=== PATIENT | male | born 1975 | race Caucasian/White ===

== ENCOUNTER → 2021-05-12 | Outpatient (CLI) | payer OTHER ==
--- NOTE | 2021-05-12 14:45 | XR ---
EXAMINATION TYPE: XR chest 2V DATE OF EXAM: 05/12/2021 COMPARISON: None HISTORY: 45-year-old male chronic cough TECHNIQUE: Frontal and lateral views FINDINGS: The cardiomediastinal silhouette, aorta, and pulmonary vasculature are within normal limits. Lungs an d pleural spaces are clear. IMPRESSION: No acute cardiopulmonary process.
[2021-05-13 01:08] LABS: Immunoglobulin E 7.81 IU/mL (0.00-114.00)
[2021-05-13 14:26] LABS: Alpha 1 Antitrypsin 95.5 mg/dL (99.0-242.0)
== END | disposition home or self-care (01) ==
LOC: LABWHC1 12:00
PROVIDERS: ATTEND Family Medicine
DX: R05 Cough (principal)
CPT/HCPCS: 36415; 71046; 82103; 82164; 82785; 86001; 86606; 86609

== ENCOUNTER → 2021-06-21 | Outpatient (CLI) | payer OTHER | END | disposition home or self-care (01) | LOC: LABWHC1 10:07 | PROVIDERS: ATTEND Family Medicine | DX: J45.991 Cough variant asthma (principal) | CPT/HCPCS: 36415; 82103; 82104 ==

== ENCOUNTER 2024-03-29 16:56 | Inpatient (IN) | payer BC, OTHER ==
--- NOTE | 2024-03-29 17:43 | ED ---
Psych HPI - General Chief Complaint: Psychiatric Symptoms Stated Complaint: Psych Time Seen by Provider: 03/29/24 16:57 Source: patient Mode of arrival: EMS - History of Present Illness Initial Comments: This patient is a 48-year-old man with history of anxiety who is brought to have psychiatric evaluation. The patient had called a friend to see if she could come and talk with him and eat pizza. He states that he told her he had taken his " stress doses" of psychiatric medication and she then called 911 and reported that the patient had taken an overdose. The patient maintains that he has taken only the as needed medications he is prescribed. He states that he always does feel he would be better off , but he states he would never take any suicidal actions. MD Complaint: other -: hour(s) Associated Psychiatric Symptoms: other (Anxiety) History of same: Yes Quality: constant Improves With: none Worsens With: none Context: significant life stressor Associated Symptoms: denies other symptoms - Related Data Home Medications Medication Instructions Recorded Confirmed ALPRAZolam [Xanax] 0.25 mg PO BID PRN 03/29/24 03/29/24 Divalproex ER [Depakote ER] 250 mg PO DAILY 03/29/24 03/29/24 Ergocalciferol (Vitamin D2) 1,250 mcg PO Q14D 03/29/24 03/29/24 [Drisdol (50,000 Iu)] Eszopiclone [Lunesta] 2 mg PO HS PRN 03/29/24 03/29/24 Etanercept [Enbrel Mini] 50 mg SQ Q7D 03/29/24 03/29/24 Finasteride 1 mg PO DAILY 03/29/24 03/29/24 Montelukast [Singulair] 10 mg PO HS 03/29/24 03/29/24 Omeprazole [PriLOSEC] 20 mg PO BID 03/29/24 03/29/24 Vortioxetine Hydrobromide 20 mg PO DAILY 03/29/24 03/29/24 [Trintellix] Ziprasidone [Geodon] 20 mg PO HS 03/29/24 03/29/24 Previous Rx's Medication Instructions Recorded Atorvastatin [Lipitor] 20 mg PO DAILY tab 04/03/24 Cyanocobalamin [Vitamin B-12] 500 mcg PO DAILY tab 04/03/24 Melatonin 10 mg PO HS tab 04/03/24 Allergies Allergy/AdvReac Type Severity Reaction Status Date / Time escitalopram [From Lexapro] Allergy Anaphylaxis Verified 03/29/24 19:27 Review of Systems ROS Statement: Those systems with pertinent positive or pertinent negative responses have been documented in the HPI. ROS Other: All systems not noted in ROS Statement are negative. Constitutional: Denies: fever, chills Respiratory: Denies: cough, dyspnea Cardiovascular: Denies: chest pain, palpitations Gastrointestinal: Denies: abdominal pain, nausea, vomiting Genitourinary: Denies: dysuria Skin: Denies: rash Neurological: Denies: headache, weakness Psychiatric: Reports: anxiety, depression, suicidal thoughts. Denies: homicidal thoughts Past Medical History History of Any Multi-Drug Resistant Organisms: None Reported Past Psychological History: Anxiety, Bipolar, Depression Smoking Status: Never smoker Past Alcohol Use History: None Reported Past Drug Use History: None Reported General Exam Limitations: no limitations General appearance: alert, in no apparent distress Head exam: Present: atraumatic, normocephalic Eye exam: Present: normal appearance. Absent: scleral icterus, conjunctival injection ENT exam: Present: normal oropharynx Neck exam: Present: normal inspection Respiratory exam: Present: normal lung sounds bilaterally. Absent: respiratory distress, wheezes, rales, rhonchi, stridor Cardiovascular Exam: Present: regular rate, normal rhythm, normal heart sounds. Absent: systolic murmur, diastolic murmur, rubs, gallop GI/Abdominal exam: Present: soft. Absent: distended, tenderness, guarding, rebound, rigid Extremities exam: Present: normal inspection, normal capillary refill. Absent: pedal edema, calf tenderness Back exam: Present: normal inspection. Absent: CVA tenderness (R), CVA tenderness (L) Neurological exam: Present: alert Psychiatric exam: Present: anxious, suicidal ideation. Absent: agitated, flat affect, manic, homicidal ideation Skin exam: Present: warm, dry, intact, normal color. Absent: rash Course Vital Signs 03/29/24 03/29/24 17:07 21:53 Temperature 98.6 F Pulse Rate 86 86 Respiratory 20 18 Rate Blood Pressure 130/96 135/74 O2 Sat by Pulse 100 97 Oximetry Medical Decision Making - Medical Decision Making Was pt. sent in by a medical professional or institution ([facility], ACCOUNTING ADVISORY SERVICES MANAGER, urgent care, hospital, or correction...) When possible be specific @ -[No] Did you speak to anyone other than the patient for history (EMS, parent, family, police, friend...)? What history was obtained from this source @ -[No] Did you review nursing and triage notes (agree or disagree)? Why? @ -[I reviewed and agree with nursing and triage notes] Were old charts reviewed (outside hosp., previous admission, EMS record, old EKG, old radiological studies, urgent care reports/EKG's, correction records)? Report findings @ -[No old charts were reviewed] Differential Diagnosis (chest pain, altered mental status, abdominal pain women, abdominal pain men, vaginal bleeding, weakness, fever, dyspnea, syncope, headache, dizziness, GI bleed, back pain, seizure, CVA, palpatations, mental health, musculoskeletal)? @ -[Differential Mental Health Depression, anxiety, bipolar, psychosis, schizophrenia, borderline personality, situational depression, adjustment disorder, behavioral disorder, brain tumor, malingering, substance abuse, encephalopathy, medication reaction, dementia, hypothyroidism, degenerative neurologic disorder, lupus.... This is not meant to be all-inclusive list EKG interpreted by me (3pts min.). @ -[As above] X-rays interpreted by me (1pt min.). @ -[None done] CT interpreted by me (1pt min.). @ -[None done] U/S interpreted by me (1pt. min.). @ -[None done] What testing was considered but not performed or refused? (CT, X-rays, U/S, labs)? Why? @ -[None] What meds were considered but not given or refused? Why? @ -[None] Did you discuss the management of the patient with other professionals (professionals i.e. [facility], ACCOUNTING ADVISORY SERVICES MANAGER, lab, RT, psych nurse, socially responsible investment adviser, c d stripper, teacher, sea air land officer, caseworker)? Give summary @ -Case discussed with EPS personnel and after they discussed with psychiatrist, the patient will be admitted for further mental health care. Was smoking cessation discussed for >3mins.? @ -[No] Was critical care preformed (if so, how long)? @ -[No] Were there social determinants of health that impacted care today? How? (Homelessness, low income, unemployed, alcoholism, drug addiction, transportation, low edu. Level, literacy, decrease access to med. care, prison, rehab)? @ -[No] Was there de-escalation of care discussed even if they declined (Discuss DNR or withdrawal of care, Hospice)? DNR status @ -[No] What co-morbidities impacted this encounter? (DM, HTN, Smoking, COPD, CAD, Cancer, CVA, ARF, Chemo, Hep., AIDS, mental health diagnosis, sleep apnea, morbid obesity)? @ -[Pre-existing mood disorder Was patient admitted / discharged? Hospital course, mention meds given and route, prescriptions, significant lab abnormalities, going to OR and other pertinent info. @ -[As above Undiagnosed new problem with uncertain prognosis? @ -[No] Drug Therapy requiring intensive monitoring for toxicity (Heparin, Nitro, Insulin, Cardizem)? @ -[No] Were any procedures done? @ -[No] Diagnosis/symptom? @ -[Mood disorder with suicidal ideation Acute, or Chronic, or Acute on Chronic? @ -[Acute on chronic Uncomplicated (without systemic symptoms) or Complicated (systemic symptoms)? @ -[Uncomplicated Side effects of treatment? @ -[No] Exacerbation, Progression, or Severe Exacerbation? @ -[No] Poses a threat to life or bodily function? How? (Chest pain, [place], [place], pneumonia, PE, COPD, DKA, ARF, appy, cholecystitis, CVA, Diverticulitis, Homicidal, Suicidal, threat to staff... and all critical care pts) @ -[Yes there is risk of progression to suicide attempt/ - Lab Data Result diagrams: 03/30/24 07:47 03/30/24 07:47 Lab Results 03/29/24 Range/Units 19:40 Influenza Type A (PCR) Not Detected (Not Detectd) Influenza Type B (PCR) Not Detected (Not Detectd) RSV (PCR) Not Detected (Not Detectd) SARS-CoV-2 (PCR) Not Detected (Not Detectd) Disposition Clinical Impression: Suicidal ideation Disposition: ADMITTED IP TO THIS HOSP Condition: Stable Is patient prescribed a controlled substance at d/c from ED?: No
[2024-03-29] MEDS: LORazepam 1 MG TAB PO STA (19:36)
[2024-03-29] MEDS ORDERED: MAGNESIUM HYDROXIDE 2,400 MG/30 ML CUP PO PRN (21:17)
[2024-03-29] MEDS ORDERED: IBUPROFEN 600 MG TAB PO PRN (21:17)
[2024-03-29] MEDS ORDERED: MAG HYDROX/AL HYDROX/SIMETH 355 ML BOTTLE PO PRN (21:17)
[2024-03-29 22:42] LABS: Appearance,Urine Clear (Clear); Bilirubin,Urine Negative (Negative); Blood,Urine Negative (Negative); Color,Urine Colorless; Glucose,Urine (UA) Negative (Negative); Ketones,Urine Negative (Negative); Leukocyte Esterase,Urine Negative (Negative); Nitrite,Urine Negative (Negative); PH, Urine 6.5 (5.0-8.0); Protein,Urine Negative (Negative); Specific Gravity,Urine 1.008 (1.001-1.035); Urobilinogen,Urine <2.0 mg/dL (<2.0)
[2024-03-29] MEDS: MELATONIN 5 MG TABLET PO SCH (22:56)
[2024-03-29] MEDS: DIVALPROEX ER 250 MG TAB.ER.24H PO SCH (22:57)
[2024-03-29] MEDS: ZIPRASIDONE 20 MG CAP PO SCH (22:57)
[2024-03-29] MEDS: MONTELUKAST 10 MG TAB PO SCH (22:57)
[2024-03-29] MEDS: VORTIOXETINE HYDROBROMIDE 20 MG TABLET PO SCH (23:32)
[2024-03-29] MEDS: TEMAZEPAM 15 MG CAP PO PRN (23:32)
--- NOTE | 2024-03-30 07:15 | P.HP ---
Psychiatric H&P - . H&P Date: 03/30/24 History & Physical: Allergies Allergy/AdvReac Type Severity Reaction Status Date / Time escitalopram [From Lexapro] Allergy Anaphylaxis Verified 03/29/24 19:27 Vital Signs Temp 97.4 F L 03/29/24 23:15 Pulse 81 03/29/24 23:15 Resp 17 03/29/24 23:15 BP 135/81 03/29/24 23:15 Pulse Ox 100 03/29/24 23:15 FiO2 Intake & Output 03/29/24 03/30/24 03/30/24 18:59 06:59 18:59 Weight 62.596 kg 60.951 kg Laboratory Last Values Urine Color Colorless 03/29/24 22:25 Urine Appearance Clear (Clear) 03/29/24 22:25 Urine pH 6.5 (5.0-8.0) 03/29/24 22:25 Ur Specific [place] 1.008 (1.001-1.035) 03/29/24 22:25 Urine Protein Negative (Negative) 03/29/24 22:25 Urine Glucose (UA) Negative (Negative) 03/29/24 22:25 Urine Ketones Negative (Negative) 03/29/24 22:25 Urine Blood Negative (Negative) 03/29/24 22:25 Urine Nitrite Negative (Negative) 03/29/24 22:25 Urine Bilirubin Negative (Negative) 03/29/24 22:25 Urine Urobilinogen <2.0 mg/dL (<2.0) 03/29/24 22:25 Ur Leukocyte Esterase Negative (Negative) 03/29/24 22:25 Influenza Type A (PCR) Not Detected (Not Detectd) 03/29/24 19:40 Influenza Type B (PCR) Not Detected (Not Detectd) 03/29/24 19:40 RSV (PCR) Not Detected (Not Detectd) 03/29/24 19:40 SARS-CoV-2 (PCR) Not Detected (Not Detectd) 03/29/24 19:40 03/30/24 07:09 Patient Name: Anshu David Date of : 79 Patient Status: Inpatient Attending Provider: Clayton Ambrose Date: 03/30/24 this is a psychiatric assessment on Anshu David who is a 48-year-old male with the history of mental illness Patient is a very poor historian patient states that he was called in by a friend that he had taken an overdose which she denies He says that he currently goes to a therapist on a regular basis as well as sees a psychiatrist for his medications He says that he does not remember what it takes but takes only as prescribed He denies any depression or anxiety He denies any auditory or visual hallucinations Patient stated that he currently lives alone and that he works in the [employer] department He denies any alcohol or substance use Past history personal and social history patient states that he has never been hospitalized on the psychiatric unit Reviewing the chart also reveals that the patient had called a friend to have pinino with him and that he hadn't told her that he had taken his medications and that he was most likely misconstrued as an overdose Patient denies any alcohol or substance use Patient did not provide any information about his family at this time Mental status examination: Reveals a middle-aged male who currently appears in no acute physical distress Patient continues to be trying to sleep but was cooperative Patient also has had a upper harelip surgery thought processes are concrete but goal directed Patient is alert and oriented to time place and person Thought processes are goal-directed sequential and logical Patient denies any auditory or visual hallucinations He is casually dressed and groomed There is no evidence of any overt psychosis Patient denies any issues with depression or anxiety Patient's formal and operational judgment appears to be fair but concrete Insight and his problem is questionable Plan: The patient will be hospitalized on the unit for further evaluation and treatment Therapy will be focused on providing supportive care improving his coping abilities with a multimodal treatment Patient also participated on the trejo activities individual milieu group OT RT PT and pharmacotherapy Approximately length of stay would be 3-5 days We'll continue on his current home medications When necessary Ativan/Haldol for agitation Dominick Villagran M.D. Active Medications Generic Name Dose Route Start Last Admin Trade Name Freq PRN Reason Stop Dose Admin Acetaminophen 650 mg 03/29/24 21:17 Acetaminophen Tab 325 Mg Tab PO Q4HR PRN Mild Pain (Scale 1 to 3) Al Hydroxide/Mg Hydroxide 30 ml 03/29/24 21:17 Mag Hydrox/Al Hydrox/Simeth 355 Ml Bottle PO Q4HR PRN GI Upset Atorvastatin Calcium 20 mg 03/30/24 09:00 Atorvastatin 20 Mg Tab PO DAILY ERNESTO Cyanocobalamin 500 mcg 03/30/24 09:00 Cyanocobalamin 500 Mcg Tab PO DAILY ERNESTO Divalproex Sodium 250 mg 03/29/24 21:30 03/29/24 22:57 Divalproex Er 250 Mg Tab.Er.24h PO 250 mg BID ERNESTO Administration Ibuprofen 600 mg 03/29/24 21:17 Ibuprofen 600 Mg Tab PO Q6HR PRN Moderate Pain (Scale 4 to 6) Magnesium Hydroxide 2,400 mg 03/29/24 21:17 Magnesium Hydroxide 2,400 Mg/30 Ml Cup PO DAILY PRN Constipation Melatonin 10 mg 03/29/24 21:30 03/29/24 22:56 Melatonin 5 Mg Tablet PO 10 mg HS ERNESTO Administration Montelukast Sodium 10 mg 03/29/24 21:30 03/29/24 22:57 Montelukast 10 Mg Tab PO 10 mg HS ERNESTO Administration Nicotine 1 patch 03/30/24 09:00 Nicotine 14mg/24hr Patch TRANSDERM DAILY ERNESTO Non-Formulary Medication 50 mg 03/31/24 11:00 Etanercept [Enbrel Mini] SQ 04/07/24 11:01 Q7D ERNESTO Non-Formulary Medication 1 mg 03/30/24 09:00 Finasteride [Finasteride] PO DAILY ERNESTO Pantoprazole Sodium 40 mg 03/30/24 09:00 Pantoprazole 40 Mg Tablet PO BID ERNESTO Temazepam 15 mg 03/29/24 21:30 03/29/24 23:32 Temazepam 15 Mg Cap PO 15 mg HS PRN Administration Insomnia Vortioxetine 20 mg 03/29/24 23:15 03/29/24 23:32 Vortioxetine Hydrobromide 20 Mg Tablet PO 20 mg DAILY ERNESTO Administration Ziprasidone 20 mg 03/29/24 21:30 03/29/24 22:57 Ziprasidone 20 Mg Cap PO 20 mg HS ERNESTO Administration
[2024-03-30 08:47] LABS: Basophils # (A) 0.1 k/uL (0-0.2); Basophils % (A) 1 %; Eosinophils # (A) 0.4 k/uL (0-0.7); Eosinophils % (A) 5 %; HCT 43.9 % (39.0-53.0); HGB 14.3 gm/dL (13.0-17.5); Lymphocytes # (A) 3.8 k/uL (1.0-4.8); Lymphocytes % (A) 47 %; MCH 30.2 pg (25.0-35.0); MCHC 32.6 g/dL (31.0-37.0); MCV 92.6 fL (80.0-100.0); Mean Platelet Volume 7.9; Monocytes # (A) 0.6 k/uL (0-1.0); Monocytes % (A) 7 %; Neutrophils % (A) 38 %; Platelet Count 336 k/uL (150-450); RBC 4.74 m/uL (4.30-5.90); RDW 12.5 % (11.5-15.5)
[2024-03-30 08:53] LABS: ALT 18 U/L (4-49); AST 23 U/L (17-59); African American GFR (CKD) >90 (>60 ml/min/1.73 sqM); Albumin 4.2 g/dL (3.5-5.0); Alkaline Phosphatase 52 U/L (38-126); Anion Gap 5 mmol/L; Blood Urea Nitrogen 8 mg/dL (9-20); Calcium 9.3 mg/dL (8.4-10.2); Carbon Dioxide 30 mmol/L (22-30); Chloride 105 mmol/L (98-107); Glucose 88 mg/dL (74-99); Non-African American GFR(CKD) >90 (>60 ml/min/1.73 sqM); Potassium 4.2 mmol/L (3.5-5.1); Sodium 140 mmol/L (137-145); Total Bilirubin 0.9 mg/dL (0.2-1.3); Total Protein 6.8 g/dL (6.3-8.2)
[2024-03-30] MEDS: PANTOPRAZOLE 40 MG TABLET PO SCH (08:53)
[2024-03-30] MEDS: CYANOCOBALAMIN 500 MCG TAB PO SCH (08:53)
[2024-03-30] MEDS: ATORVASTATIN 20 MG TAB PO SCH (08:53)
[2024-03-30] MEDS: NON FORMULARY DRUG (Finasteride [Finasteride] 1 MG Tablet) PO SCH (08:59)
[2024-03-30] MEDS ORDERED: VORTIOXETINE HYDROBROMIDE 20 MG TABLET PO SCH (09:00)
[2024-03-30] MEDS ORDERED: NICOTINE 14MG/24HR PATCH TRANSDERM SCH (09:00)
[2024-03-30 09:47] LABS: Valproic Acid (Depakene) 43.8 ug/mL
[2024-03-30 12:42] LABS: Urine Alcohol Negative (Negative); Urine Barbiturate Negative (Negative); Urine Cocaine Negative (Negative); Urine Methadone Positive (Negative); Urine Opiates Negative (Negative); Urine Phencyclidine Negative (Negative)
[2024-03-30] MEDS: ETANERCEPT 50 MG SQ SCH (15:39)
[2024-03-30] MEDS ORDERED: ETANERCEPT 50 MG SQ SCH (16:00)
--- NOTE | 2024-03-30 16:58 | P.CONS ---
History of Present Illness - Reason for Consult Consult date: 03/30/24 Medical management - Chief Complaint Suicidal ideation - History of Present Illness 48-year-old man with history of hyperlipidemia, rheumatoid arthritis, vitamin D deficiency, anxiety who is brought to have psychiatric evaluation. The patient had called a friend to see if she could come and talk with him and eat pizza. He states that he told her he had taken his " stress doses" of psychiatric medication and she then called 911 and reported that the patient had taken an overdose. The patient maintains that he has taken only the as needed medications he is prescribed. He states that he always does feel he would be better off , but he states he would never take any suicidal actions. Workup completed in ED including blood work WBC 8.2, hemoglobin of 14.3 and platelet count of 336, sodium 140, potassium 4.2, BUNs/creatinine of 8/0.85, urine drug screen is positive for methadone Review of Systems REVIEW OF SYSTEMS: CONSTITUTIONAL: No fever, no malaise, no fatigue. HEENT: No recent visual problems or hearing problems. Denied any sore throat. CARDIOVASCULAR: No chest pain, orthopnea, PND, no palpitations, no syncope. PULMONARY: No shortness of breath, no cough, no hemoptysis. GASTROINTESTINAL: No diarrhea, no nausea, no vomiting, no abdominal pain. NEUROLOGICAL: No headaches, no weakness, no numbness. HEMATOLOGICAL: Denies any bleeding or petechiae. GENITOURINARY: Denies any burning micturition, frequency, or urgency. MUSCULOSKELETAL/RHEUMATOLOGICAL: Denies any joint pain, swelling, or any muscle pain. ENDOCRINE: Denies any polyuria or polydipsia. The rest of the 14-point review of systems is negative. Past Medical History Past Medical History: Rheumatoid Arthritis (RA) Additional Past Medical History / Comment(s): Cleft lip/palate History of Any Multi-Drug Resistant Organisms: None Reported Past Surgical History: Hernia Repair Additional Past Surgical History / Comment(s): Lip/palate Past Psychological History: Anxiety, Bipolar, Depression Smoking Status: Never smoker Past Alcohol Use History: None Reported Past Drug Use History: None Reported Medications and Allergies Home Medications Medication Instructions Recorded Confirmed Type ALPRAZolam [Xanax] 0.25 mg PO BID PRN 03/29/24 03/29/24 History Divalproex ER [Depakote ER] 250 mg PO DAILY 03/29/24 03/29/24 History Ergocalciferol (Vitamin D2) 1,250 mcg PO Q14D 03/29/24 03/29/24 History [Drisdol (50,000 Iu)] Eszopiclone [Lunesta] 2 mg PO HS PRN 03/29/24 03/29/24 History Etanercept [Enbrel Mini] 50 mg SQ Q7D 03/29/24 03/29/24 History Finasteride 1 mg PO DAILY 03/29/24 03/29/24 History Montelukast [Singulair] 10 mg PO HS 03/29/24 03/29/24 History Omeprazole [PriLOSEC] 20 mg PO BID 03/29/24 03/29/24 History Simvastatin [Zocor] 20 mg PO DAILY 03/29/24 03/29/24 History Vortioxetine Hydrobromide 20 mg PO DAILY 03/29/24 03/29/24 History [Trintellix] Ziprasidone [Geodon] 20 mg PO HS 03/29/24 03/29/24 History Allergies Allergy/AdvReac Type Severity Reaction Status Date / Time escitalopram [From Lexapro] Allergy Anaphylaxis Verified 03/29/24 19:27 Physical Exam Vitals: Vital Signs Temp Pulse Pulse Resp BP BP Pulse Ox 03/30/24 08:54 71 121/89 03/29/24 23:15 97.4 F L 81 17 135/81 100 03/29/24 21:53 86 18 135/74 97 03/29/24 17:07 98.6 F 86 20 130/96 100 Intake and Output 03/29/24 03/30/24 03/30/24 22:59 06:59 14:59 Other: Weight 62.596 kg 60.951 kg General appearance: alert, in no apparent distress Head exam: Present: atraumatic, normocephalic Eye exam: Present: normal appearance. Absent: scleral icterus, conjunctival injection ENT exam: Present: normal oropharynx Neck exam: Present: normal inspection Respiratory exam: Present: normal lung sounds bilaterally. Absent: respiratory distress, wheezes, rales, rhonchi, stridor Cardiovascular Exam: Present: regular rate, normal rhythm, normal heart sounds. Absent: systolic murmur, diastolic murmur, rubs, gallop GI/Abdominal exam: Present: soft. Absent: distended, tenderness, guarding, rebound, rigid Extremities exam: Present: normal inspection, normal capillary refill. Absent: pedal edema, calf tenderness Back exam: Present: normal inspection. Absent: CVA tenderness (R), CVA tenderness (L) Neurological exam: Present: alert Psychiatric exam: Present: anxious, suicidal ideation. Absent: agitated, flat affect, manic, homicidal ideation Skin exam: Present: warm, dry, intact, normal color. Absent: rash Results CBC & Chem 7: 03/30/24 07:47 03/30/24 07:47 Labs: Abnormal Lab Results - Last 24 Hours (Table) 03/30/24 Range/Units 07:47 BUN 8 L (9-20) mg/dL Assessment and Plan Assessment: 1. Suicidal ideation; your management 2. Hyperlipidemia; continue with home dose of Zocor 20 mg daily 3. Vitamin D deficiency; vitamin D 2 50,000 units biweekly; patient can resume once stable for discharge 4. Rheumatoid arthritis; continue with outpatient management 5. Asthma' Singulair 10 mg daily 6. GERD/gastritis; omeprazole 20 mg twice daily DVT prophylaxis; ambulation CODE STATUS; full code
[2024-03-30] MEDS: hydrOXYzine pamoate 25 MG CAP PO PRN (17:21)
[2024-03-31] MEDS ORDERED: ETANERCEPT 50 MG/ML SQ SCH (11:00)
[2024-03-31 14:56] LABS: Chol/HDL Ratio 2.27 Ratio; Iron 105 UG/DL (65-175); LDL Cholesterol,Calculated 58.6 mg/dL (0.0-131.0); VLDL Calculation 18.08 mg/dL (5.00-40.00)
[2024-03-31 15:03] VITALS: BMI 21.9
[2024-03-31] MEDS: TEMAZEPAM 15 MG CAP PO SCH (21:24)
--- NOTE | 2024-04-01 08:50 | P.PN ---
Progress Note - Text Progress Note Date: 03/31/24 In-Patient Follow-up Chief Complaint: I did not take overdose; I was having a panic attack Subjective: The patient noted that he did not take overdose of pills. He was having a panic attack and during process he sent a text which was misunderstood as if he was taking overdose of pills. His friend called the police and he got brought the hospital. The patient noted that he quite few psychiatric medications. His PCP prescribes his medications. He sees a therapist. He has been seeing her since 2002. The patient noted that he has Bipolar, Depression, Panic attacks, Dysthymia. Recently, his Panic attack got worse and he started seeing his therapist. He told his doctor, who changed his medications. The patient noted that job issue, fear of losing his dog soon and medical issues lead to recent panic attacks. Leading questions: The patient admitted to Depression and Anxiety with Panic attacks. Denied SI or HI. Denied symptoms consistent with psychosis Sleep and Appetite: Impaired. Interim History: Behavioral Changes: PRN meds/isolation/restraints/ change in status: None. Change in medical condition: No change. Change in medications: No change. Side effects from Medications: None. Objective- MSE: Alert and attentive. Orientation times three. Dressed and Groomed: Appropriately. Pleasant and cooperative. Psychomotor Activity: Normal. Speech: Normal in tone, quality, and quantity. Mood: Depressed and Anxious. Affect: Appropriate to the mood. SI or HI: None. Perceptual disturbance: None. Thought Content: No paranoia or other delusional thinking noted. Thought Process: Normal. Cognition: Intact Judgment and Insight: Good Labs: Reviewed with patients. Diagnosis: Panic Disorder Dysthymia Plan and recommendation: Continue current Medications. Monitor MS and side effects of medications and adjust medications accordingly. Provide supportive psychotherapy. The patient provided psychoeducation. The patient to continue attending the trejo activities. CBC with Diff, CMP, TSH, Lipid Profile, HbA1c, EKG ordered. Medication Consent with explanation of risk/benefits and side effects: Explained and obtained.
[2024-04-01] MEDS: ACETAMINOPHEN TAB 325 MG TAB PO PRN (14:37)
[2024-04-02 07:11] VITALS: PULSE 60; RESP 14
[2024-04-02] MEDS: DIVALPROEX ER 250 MG TAB.ER.24H PO SCH (18:26)
[2024-04-02] MEDS: ZIPRASIDONE 20 MG CAP PO SCH (18:26)
--- NOTE | 2024-04-02 20:59 | P.PN ---
Progress Note - Text Progress Note Date: 04/02/24 In-Patient Follow-up Chief Complaint: I am doing good Subjective: The patient noted that he is doing good and feels stable to be discharged. He did not have any complaints. His anxiety attacks have subsided. He is no more anxious. He is not anxious about taking too many pills. His concerned about going back to work has been resolved. He is not having panic attacks. His mood has been back to normal. He is not suicidal or homicidal. He did state that he would like to make a follow-up appointment at [facility] to see a psychiatrist for medications. He was getting his medications from PCP. He wants to continue seeing his therapist. No side effects from medications reported. Overall, patient is being set for discharge tomorrow unless MS changes. Leading questions: The patient denied Depression and Anxiety. Denied SI or HI. Denied symptoms consistent with psychosis Sleep and Appetite: Good. Interim History: Behavioral Changes: PRN meds/isolation/restraints/ change in status: None Change in medical condition: No change. Change in medications: No change. Side effects from Medications: None. Objective- MSE: Alert and attentive. Orientation times three. Dressed and Groomed: Appropriately. Pleasant and cooperative. Psychomotor Activity: Normal. Speech: Normal in tone, quality, and quantity. Mood: Good. Affect: Appropriate SI or HI: None. Perceptual disturbance: None. Thought Content: No paranoia or other delusional thinking noted. Thought Process: Normal. Cognition: Intact Judgment and Insight: Good AIMS: Normal. Labs: no new labs. Diagnosis: No changes. Plan and recommendation: Continue current Medications. Monitor MS and side effects of medications and adjust medications accordingly. Provide supportive psychotherapy. The patient provided psychoeducation. The patient provided Substance abuse counseling. Smoke cessation therapy. The patient to continue attending the trejo activities. Medication Consent with explanation of risk/benefits and side effects: Explained and obtained.
[2024-04-03 07:28] VITALS: BP 116/65; TEMP 97.7
[2024-04-03] MEDS: MONTELUKAST 10 MG TAB PO SCH (08:50)
--- NOTE | 2024-04-03 20:16 | P.DS ---
Providers Date of admission: 03/29/24 21:15 Expected date of discharge: 04/03/24 Attending physician: Clayton Ambrose MD Consults: 03/29/24 21:17 Consult Physician Routine Consulting Provider: Sarahi Pardo Consult Reason/Comments: H&P Do you want consulting provider notified?: Already Contacted Primary care physician: Sarahi Pardo - Discharge Diagnosis(es) (1) Panic disorder Status: Acute Priority: High (2) Dysthymia (or depressive neurosis) Status: Acute Priority: Medium (3) Suicidal ideation Status: Acute Priority: High Hospital Course: Discharge Summary HPI: this is a psychiatric assessment on nAshu David who is a 48-year-old male with the history of mental illness Patient is a very poor historian patient states that he was called in by a friend that he had taken an overdose which she denies He says that he currently goes to a therapist on a regular basis as well as sees a psychiatrist for his medications He says that he does not remember what it takes but takes only as prescribed He denies any depression or anxiety He denies any auditory or visual hallucinations Patient stated that he currently lives alone and 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 He denies any alcohol or substance use Past history personal and social history patient states that he has never been hospitalized on the psychiatric unit Reviewing the chart also reveals that the patient had called a friend to have pizza with him and that he hadn't told her that he had taken his medications and that he was most likely misconstrued as an overdose Patient denies any alcohol or substance use Patient did not provide any information about his family at this time Hospital Course: After admission, the patient was involved in psychopharmacotherapy, trejo milieu, and individual psychotherapy. He was reinstated on his home medications. The patient started attending trejo activities and participated well in groups. His interaction with peers and staff was good. He reconstituted fast. He was not experiencing any panic attacks or anxiety episodes. His depression improved and suicidal thoughts abated. He was discharged on 2023 in a stable condition. He has no guns or weapons in his possession. MSE: Reveals a middle-aged male who currently appears in no acute physical distress Patient continues to be trying to sleep but was cooperative Patient also has had a upper harelip surgery thought processes are concrete but goal directed Patient is alert and oriented to time place and person Thought processes are goal-directed sequential and logical Patient denies any auditory or visual hallucinations He is casually dressed and groomed There is no evidence of any overt psychosis Patient denies any issues with depression or anxiety Patient's formal and operational judgment appears to be fair but concrete Insight and his problem is questionable Diagnosis: Diagnosis: Panic Disorder Suicidal ideations Dysthymia Plan: The patient to be discharged today. The patient has attained good improvement since admission. He is stable to be followed as an outpatient. The patient is not suicidal or Homicidal. He does not pose any harm to self or others. The patient remains at a greater risk of self-harm or harm to others than general population on a chronic basis due to psychiatric illness and substance abuse. The patient will continue taking following medication post discharge. The importance of medication compliance and maintaining regular appointments at psychiatric out-pt and PCP clinic was explained and encouraged. The understood and agreed with the recommendations. nutrition worker to arrange for and conduct family meeting to ensure safety upon discharge and answer any questions. The social media editor to arrange for patients follow-up appointments at [facility] for psychiatric care along with follow-up with PCP. The patient provided psychoeducation. Advised to call 911 or go to nearest ED or call this hospital in case of acute worsening of symptomatology, severe side effects or having suicidal, homicidal thoughts and feeling unsafe at home. Patient Condition at Discharge: Stable Plan - Discharge Summary Discharge Rx Participant: No New Discharge Prescriptions: New Atorvastatin [Lipitor] 20 mg PO DAILY tab Melatonin 10 mg PO HS tab Cyanocobalamin [Vitamin B-12] 500 mcg PO DAILY tab Continue Ziprasidone [Geodon] 20 mg PO HS Finasteride 1 mg PO DAILY Eszopiclone [Lunesta] 2 mg PO HS PRN PRN Reason: Insomnia ALPRAZolam [Xanax] 0.25 mg PO BID PRN PRN Reason: Anxiety Etanercept [Enbrel Mini] 50 mg SQ Q7D Montelukast [Singulair] 10 mg PO HS Vortioxetine Hydrobromide [Trintellix] 20 mg PO DAILY Ergocalciferol (Vitamin D2) [Drisdol (50,000 Iu)] 1,250 mcg PO Q14D Divalproex ER [Depakote ER] 250 mg PO DAILY Omeprazole [PriLOSEC] 20 mg PO BID Discontinued Simvastatin [Zocor] 20 mg PO DAILY Discharge Medication List ALPRAZolam [Xanax] 0.25 mg PO BID PRN 03/29/24 [History] Divalproex ER [Depakote ER] 250 mg PO DAILY 03/29/24 [History] Ergocalciferol (Vitamin D2) [Drisdol (50,000 Iu)] 1,250 mcg PO Q14D 03/29/24 [History] Eszopiclone [Lunesta] 2 mg PO HS PRN 03/29/24 [History] Etanercept [Enbrel Mini] 50 mg SQ Q7D 03/29/24 [History] Finasteride 1 mg PO DAILY 03/29/24 [History] Montelukast [Singulair] 10 mg PO HS 03/29/24 [History] Omeprazole [PriLOSEC] 20 mg PO BID 03/29/24 [History] Vortioxetine Hydrobromide [Trintellix] 20 mg PO DAILY 03/29/24 [History] Ziprasidone [Geodon] 20 mg PO HS 03/29/24 [History] Atorvastatin [Lipitor] 20 mg PO DAILY tab 04/03/24 [Rx] Cyanocobalamin [Vitamin B-12] 500 mcg PO DAILY tab 04/03/24 [Rx] Melatonin 10 mg PO HS tab 04/03/24 [Rx] Follow up Appointment(s)/Referral(s): [facility] - 04/07/24 11:30 am (04/07/2024 @ 11:30 [facility] 04/30 @ 09:30 w/ Dr Umaña ) Sarahi Pardo MD [Primary Care Provider] - 1-2 days Patient Instructions/Handouts: Bipolar Disorder (DC), Dysthymic Disorder (DC), Panic Disorder (ED) Activity/Diet/Wound Care/Special Instructions: Avoid the use of street drugs and alcohol. Take all medications as prescribed. When you are in need of refills on your medications, please contact your medical provider and/or outpatient psychiatrist/provider to have this done. Please go to your scheduled outpatient appointment for aftercare treatment. If symptoms return or become worse, call the crisis line at and/or go to the nearest emergency room for evaluation. National Suicide Hotline 988 Discharge Disposition: HOME SELF-CARE
== END 2024-04-03 12:25 | disposition home or self-care (01) | DRG 880 ==
LOC: EC 16:56 → SUPCPDRO 16:56 → 3MHU 21:15
PROVIDERS: ADMIT Psychiatry & Neurology Psychiatry; ATTEND Psychiatry & Neurology Psychiatry
DX: F41.0 Panic disorder [episodic paroxysmal anxiety] (principal); R45.851 Suicidal ideations; F34.1 Dysthymic disorder; F31.9 Bipolar disorder, unspecified; M06.9 Rheumatoid arthritis, unspecified; J45.909 Unspecified asthma, uncomplicated; Z11.52 Encounter for screening for COVID-19; K21.9 Gastro-esophageal reflux disease without esophagitis; K29.70 Gastritis, unspecified, without bleeding; E78.5 Hyperlipidemia, unspecified; E55.9 Vitamin D deficiency, unspecified; G47.00 Insomnia, unspecified; K59.00 Constipation, unspecified; Z79.899 Other long term (current) drug therapy; Z88.8 Allergy status to other drugs, medicaments and biological substances
CPT/HCPCS: 80053; 80061; 80164; 80306; 81003; 82075; 83036; 83540; 84443; 85025; 87636; 93005; 99285